=== PATIENT | male | born 2000 | race African-American/Black ===

== ENCOUNTER 2020-08-04 17:59 | Emergency (ER) | payer OTHER ==
[~2020-08-04] VITALS: Ht 177.8 cm; Wt 79.0 kg
[~2020-08-04 17:59] MED LIST: KEPPRA; LEVE25PO MC; MAGNESIUM; MYCO200S2 PO; PROTEIN975 MG PO; TACR100O2 TP
[2020-08-04] MEDS ORDERED: ACETAMINOPHEN 325MG TABLET PO STA (18:18)
[2020-08-04 18:22] VITALS: BP 127/71
[2020-08-04] MEDS ORDERED: LEVETIRACETAM 500MG PREMIX 100 ML IV ONE (18:30)
[2020-08-04] MEDS ORDERED: SODIUM CHLORIDE 0.9% 1,000 ML IV ONE (18:30)
[2020-08-04 18:52] LABS: BASOPHILS % 0.4 % (0.0-2.0); EOSINOPHILS % 1.3 % (0.0-5.0); HEMOGLOBIN. 14.7 g/dL (14.0-18.0); LYMPHOCYTES % 34.1 % (20.0-50.0); MEAN CORPUSCULAR HEMOGLOBIN 26.5 pg (28.0-32.0); MEAN CORPUSCULAR VOLUME 81.5 fL (80.0-94.0); MEAN PLATELET VOLUME 8.1 fl (7.4-10.4); MONOCYTES % 8.6 % (2.0-8.0); NEUTROPHILS % 55.6 % (40.0-76.0); PLATELET 171 x1000/uL (130-400); RED BLOOD CELL COUNT 5.53 mill/uL (4.7-6.1); RED CELL DISTRIBUTION WIDTH 14.5 % (11.6-14.6)
[2020-08-04 18:58] LABS: CHLORIDE 103 mEq/L (98-107)
[2020-08-04 19:02] LABS: ETHANOL BLOOD < 10 mg/dL
== END 2020-08-04 20:18 | disposition home or self-care (01) ==
LOC: ER 18:04
DX: G40.909 Epilepsy, unspecified, not intractable, without status epilepticus (principal); I49.9 Cardiac arrhythmia, unspecified; Z98.890 Other specified postprocedural states; Z94.4 Liver transplant status
CPT/HCPCS: 36415; 70450; 80053; 80320; 85025; 93005; 96365; 99285; J1953; J7030; G0480

== ENCOUNTER 2022-03-05 19:18 | Emergency (ER) | payer OTHER ==
[~2022-03-05] VITALS: Ht 180.3 cm; Wt 70.0 kg
[2022-03-05 22:14] LABS: BASOPHILS % 0.2 % (0.0-2.0); EOSINOPHILS % 1.2 % (0.0-5.0); HEMATOCRIT. 43.4 % (42.0-52.0); HEMOGLOBIN. 14.7 g/dL (14.0-18.0); LYMPHOCYTES % 21.8 % (20.0-50.0); MEAN CORPUSCULAR HEMOGLOBIN 27.2 pg (28.0-32.0); MEAN CORPUSCULAR VOLUME 80.1 fL (80.0-94.0); MEAN PLATELET VOLUME 7.5 fl (7.4-10.4); MONOCYTES % 9.9 % (2.0-8.0); NEUTROPHILS % 66.9 % (40.0-76.0); PLATELET 183 x1000/uL (130-400); RED BLOOD CELL COUNT 5.41 mill/uL (4.7-6.1); RED CELL DISTRIBUTION WIDTH 13.7 % (11.6-14.6)
[2022-03-05 22:20] LABS: CHLORIDE 106 mEq/L (98-107)
[2022-03-05 23:38] VITALS: BP 122/78
== END 2022-03-05 23:39 | disposition home or self-care (01) ==
LOC: ER 19:18
DX: R55 Syncope and collapse (principal); Z86.59 Personal history of other mental and behavioral disorders; Z98.890 Other specified postprocedural states
CPT/HCPCS: 36415; 80053; 85025; 93005; 99284